=== PATIENT | female | born 1940 | race Caucasian/White ===

== ENCOUNTER 2021-10-21 12:52 | Emergency (ER) | payer MEDICARE ==
[~2021-10-21] VITALS: Ht 167.6 cm; Wt 76.4 kg
[2021-10-21] MEDS ORDERED: IV NORMAL SALINE 1,000ML 1,000 ML IV ONE ×2 (14:45→19:45)
[2021-10-21] MEDS ORDERED: IOHEXOL 300 MG/ML 75 ML VIAL. IV ONE (14:45)
[2021-10-21] MEDS ORDERED: CONTRAST GIVEN. MC PRN (14:45)
[2021-10-21] MEDS ORDERED: diphenhydrAMINE 50 MG/ML VIAL IVP ONE (15:00)
[2021-10-21 15:23] LABS: BASO % 0 % (0-3); EOS # 0.1 x10^3/uL (0.0-0.7); EOS % 0 % (0-3); HEMATOCRIT 40.5 % (36.0-47.0); HEMOGLOBIN 13.3 g/dL (12.0-15.5); LYMPH # 1.3 x10^3/uL (1.0-4.8); LYMPH % 11 % (24-48); MEAN CORPUSCULAR HEMOGLOBIN 28 pg (25-35); MEAN CORPUSCULAR HGB CONC 33 g/dL (31-37); MEAN CORPUSCULAR VOLUME 84 fL (79-100); MONO # 1.2 x10^3/uL (0.0-1.1); MONO % 10 % (0-9); NEUT # 9.1 x10^3uL (1.8-7.7); NEUT % 78 % (31-73); PLATELET COUNT 505 x10^3/uL (140-400); RED CELL DISTRIBUTION WIDTH 13.6 % (11.5-14.5); WHITE BLOOD COUNT 11.6 x10^3/uL (4.0-11.0)
[2021-10-21 15:34] LABS: CALCIUM 9.5 mg/dL (8.5-10.1); CREATININE 0.9 mg/dL (0.6-1.0); GFR 60.4; POTASSIUM 4.1 mmol/L (3.5-5.1)
[2021-10-21 15:39] LABS: ALBUMIN 2.7 g/dL (3.4-5.0); ALBUMIN/GLOBULIN RATIO 0.6 (1.0-1.7); MAGNESIUM 2.1 mg/dL (1.8-2.4); TOTAL BILIRUBIN 0.4 mg/dL (0.2-1.0); TOTAL PROTEIN 7.1 g/dL (6.4-8.2)
--- NOTE | 2021-10-21 16:23 | PHYS DOC ---
Past History Past Surgical History: No Surgical History (DARREN LIMON) Alcohol Use: None (DARREN LIMON) General Adult EDM: Chief Complaint: ABDOMINAL PAIN HPI: HPI: Patient is a 80 year old female who presents with 13-day history of constipation. Patient states that she has been unable to pass a bowel movement for approximately 13 days. She states she has tried taking MiraLAX and other laxatives without success. Patient reports associated malaise. Patient denies nausea, vomiting, diarrhea, fever, chills, dysuria, hematuria. (DARREN LIMON) Review of Systems: Review of Systems: Constitutional: See HPI Eyes: Denies change in visual acuity, visual field deficits or discharge HENT: Denies ear pain, nasal congestion or sore throat Respiratory: Denies cough or shortness of breath Cardiovascular: Denies chest pain, palpitations or edema GI: See HPI : See HPI Musculoskeletal: Denies back pain or joint pain Integument: Denies rash or other skin lesion Neurologic: Denies headache, focal weakness or sensory changes (DARREN LIMON) Current Medications: Current Meds: Current Medications Medications (Trade) Dose Ordered Sig/Lane Start Time Stop Time Status Last Admin Dose Admin Diphenhydramine HCl (Benadryl) 25 mg 1X ONCE 10/21/21 15:00 10/21/21 15:05 DC 10/21/21 15:13 25 MG Info (Do NOT chart on this entry -- for MONITORING) 1 each PRN DAILY PRN 10/21/21 14:45 10/23/21 14:44 Iohexol (Omnipaque 300 Mg/ml) 75 ml 1X ONCE 10/21/21 14:45 10/21/21 14:46 DC 10/21/21 15:49 75 ML Sodium Chloride 1,000 ml @ 1,000 mls/hr 1X ONCE 10/21/21 14:45 10/21/21 15:44 DC 10/21/21 15:07 1,000 MLS/HR (DARREN LIMON) Allergies: Allergies: Allergies Coded Allergies Type Severity Reaction Last Updated Verified acetaminophen Allergy Unknown 10/21/21 Yes hydrocodone Allergy Unknown 10/21/21 Yes tramadol Allergy Unknown 10/21/21 Yes (DARREN LIMON) Physical Exam: PE: Constitutional: Well developed, well nourished, no acute distress, non-toxic appearance. HENT: Normocephalic, atraumatic, bilateral external ears normal, nose normal. Eyes: EOMI, conjunctiva normal, no discharge. Neck: Normal range of motion, no stridor. Abdomen: Protuberant abdomen with distention, bowel sounds hypoactive, firm, no tenderness, no masses, no pulsatile masses. [] Skin: Warm, dry, no erythema, no rash. Extremities: No tenderness, no cyanosis, no clubbing, ROM intact, no edema. Neurologic: Alert and oriented x4, no focal deficits noted. (DARREN LIMON) Current Patient Data: Labs: Laboratory Tests Test 10/21/21 15:05 White Blood Count 11.6 x10^3/uL (4.0-11.0) H Red Blood Count 4.80 x10^6/uL (3.50-5.40) Hemoglobin 13.3 g/dL (12.0-15.5) Hematocrit 40.5 % (36.0-47.0) Mean Corpuscular Volume 84 fL (79-100) Mean Corpuscular Hemoglobin 28 pg (25-35) Mean Corpuscular Hemoglobin Concent 33 g/dL (31-37) Red Cell Distribution Width 13.6 % (11.5-14.5) Platelet Count 505 x10^3/uL (140-400) H Neutrophils (%) (Auto) 78 % (31-73) H Lymphocytes (%) (Auto) 11 % (24-48) L Monocytes (%) (Auto) 10 % (0-9) H Eosinophils (%) (Auto) 0 % (0-3) Basophils (%) (Auto) 0 % (0-3) Neutrophils # (Auto) 9.1 x10^3uL (1.8-7.7) H Lymphocytes # (Auto) 1.3 x10^3/uL (1.0-4.8) Monocytes # (Auto) 1.2 x10^3/uL (0.0-1.1) H Eosinophils # (Auto) 0.1 x10^3/uL (0.0-0.7) Basophils # (Auto) 0.0 x10^3/uL (0.0-0.2) Sodium Level 135 mmol/L (136-145) L Potassium Level 4.1 mmol/L (3.5-5.1) Chloride Level 99 mmol/L (98-107) Carbon Dioxide Level 26 mmol/L (21-32) Anion Gap 10 (6-14) Blood Urea Nitrogen 8 mg/dL (7-20) Creatinine 0.9 mg/dL (0.6-1.0) Estimated GFR (Cockcroft-Gault) 60.4 BUN/Creatinine Ratio 9 (6-20) Glucose Level 116 mg/dL (70-99) H Calcium Level 9.5 mg/dL (8.5-10.1) Magnesium Level 2.1 mg/dL (1.8-2.4) Total Bilirubin 0.4 mg/dL (0.2-1.0) Aspartate Amino Transferase (AST) 27 U/L (15-37) Alanine Aminotransferase (ALT) 29 U/L (14-59) Alkaline Phosphatase 209 U/L (46-116) H Total Protein 7.1 g/dL (6.4-8.2) Albumin 2.7 g/dL (3.4-5.0) L Albumin/Globulin Ratio 0.6 (1.0-1.7) L Lipase 59 U/L (73-393) L Vital Signs: Vital Signs Date Time Temp Pulse Resp B/P (MAP) Pulse Ox O2 Delivery O2 Flow Rate FiO2 10/21/21 18:41 100 20 119/74 (89) 94 Room Air 10/21/21 17:09 98 20 114/68 (83) 94 Room Air 10/21/21 15:37 94 20 110/72 (85) 94 Room Air 10/21/21 15:08 89 20 127/79 (95) 95 Room Air 10/21/21 14:35 91 20 137/94 (108) 96 Room Air 10/21/21 13:31 98.3 99 20 140/88 (105) 95 Room Air 10/21/21 13:20 72 20 144/52 (82) 98 Room Air (DARREN LIMON) Radiology/Procedures: Radiology/Procedures: PROCEDURE: CT ABD PELV W/ IV CONTRST ONLY Exam: CT of abdomen and pelvis with contrast INDICATION: Abdominal pain, constipation for 13 days TECHNIQUE: Sequential axial images through the abdomen and pelvis obtained following the administration of 75 mL of Isovue-370 IV contrast. Sagittal and coronal reformatted images were reconstructed from the axial data and reviewed. Exposure: One or more of the following in the visualized dose reduction techniques were utilized for this examination: 1. Automated exposure control 2. Adjustment of the MA and/or KV according to patient size 3. Use of iterative of reconstructive technique Comparisons: None FINDINGS: Heart size is normal. No pericardial effusion. Small hiatal hernia. Small bilateral pleural effusions with adjacent atelectasis. Liver, spleen, pancreas, and adrenals are unremarkable. Gallbladder is partially distended and not well evaluated. No perinephric inflammation or hydronephrosis. No renal or ureteral calculi are identified. Bladder is partially distended and not well evaluated. Uterus is enlarged with a heterogenous masslike area centrally within the uterus. No abnormal adnexal mass. Mild wall thickening at the splenic flexure of the colon. Remainder large and small bowel are unremarkable. There is a large amount of intra-abdominal ascites nodularity and reticulation noted throughout the omentum and mesenteric fat. No free air. Abdominal aorta has normal course and caliber. Abdominal vasculature is patent. No enlarged intra-abdominal lymph nodes are identified. Mild prominent right inguinal lymph node noted measuring up to 1.2 cm in long axis. No suspicious osseous lesions or acute fractures. IMPRESSION: 1. Large amount of intra-abdominal ascites with peritoneal and omental nodularity concerning for peritoneal carcinomatosis. 2. There is mild wall thickening at the splenic flexure of the colon. Correlate with colonoscopy. 3. Heterogenous enhancing mass centrally within the uterus measuring approximately 6.0 x 4.2 cm. This may be endometrial in nature. Further evaluation with ultrasound is warranted. 4. Prominent right inguinal lymph node as described above. 5. Small hiatal hernia. 6. Small bilateral pleural effusions with adjacent atelectasis. Electronically signed by: Norma Davis MD (10/21/2021 9:41 PM) [facility] (DARREN LIMON) Heart Score: C/O Chest Pain: No (DARREN LIMON) Course & Med Decision Making: Course & Med Decision Making Pertinent Labs and Imaging studies reviewed. (See chart for details) Patient is a 80-year-old female who presents with 2-week history of constipatio n, abdominal distention. She states she has an appointment with her primary care doctor tomorrow, but "could not make it." Work-up today will include labs, CT abdomen pelvis with IV contrast, urinalysis. CT abdomen pelvis concerning for a mass. It is unclear whether the mass originates in the colon and extends to the uterus, or begins to the uterus and extends to the colon. She also has ascites throughout her abdomen. No obstruction at this time. Dr. Genao (hospitalist) will admit patient to [facility] for higher level of care. Consulted with Dr. Hall (heme/onc) and Dr. Lee (general surgery) regarding patient case. Patient reluctantly agrees to transfer after consulting with and daughter in law. During her stay in the [place] emergency department while awaiting transfer to [facility], she did have some regurgitation of mucus as well as requesting Tums. She was given MiraLAX and Dulcolax here in the department in effort to stimulate a bowel movement, however it was unsuccessful while she was here. Patient continues to pass gas occasionally. Patient was hemodynamically stable and comfortable upon transfer to [facility]. (DARREN LIMON) Course & Med Decision Making Did not see or evaluate patient. Agree with PAs work-up and disposition per note (IMANI REYNAGA MD) Dragon Disclaimer: Dragon Disclaimer: This electronic medical record was generated, in whole or in part, using a voice recognition dictation system. (DARREN LIMON) Departure Departure: Impression: Primary Impression: Mass of abdomen Qualified Codes: R19.09 - Other intra-abdominal and pelvic swelling, mass and lump Additional Impressions: Ascites Qualified Codes: R18.8 - Other ascites Leukocytosis Qualified Codes: D72.829 - Elevated white blood cell count, unspecified Constipation Qualified Codes: K59.00 - Constipation, unspecified Disposition: 02 SHORT TERM HOSPITAL Condition: GUARDED Referrals: KARY THOMPSON MD (PCP) DARREN LIMON Oct 21, 2021 16:23 IMANI REYNAGA MD Oct 21, 2021 22:11
[2021-10-21] MEDS ORDERED: BISACODYL TAB 5 MG TABLET.DR. PO ONE (17:30)
[2021-10-21] MEDS ORDERED: POLYETHYLENE GLYCOL 3350 17 GM PACKET. PO ONE (17:30)
[2021-10-21] MEDS ORDERED: IV NORMAL SALINE 50ML 50 ML ONE (20:28)
[2021-10-21] MEDS ORDERED: cefTRIAXone SODIUM 1 GM VIAL ONE (20:28)
[2021-10-21 21:08] VITALS: BP 149/103
[2021-10-21] MEDS ORDERED: PANTOPRAZOLE IV 40 MG VIAL. ONE (21:10)
[2021-10-21] MEDS ORDERED: CALCIUM CARBONATE 500 MG TAB.CHEW PO PRN (21:15)
[2021-10-21] MEDS ORDERED: PANTOPRAZOLE IV 40 MG VIAL. IVP ONE (21:15)
--- NOTE | 2021-10-21 21:44 | RAD ---
Exam: CT of abdomen and pelvis with contrast INDICATION: Abdominal pain, constipation for 13 days TECHNIQUE: Sequential axial images through the abdomen and pelvis obtained following the administrati on of 75 mL of Isovue-370 IV contrast. Sagittal and coronal reformatted images were reconstructed fro m the axial data and reviewed. Exposure: One or more of the following in the visualized dose reduction techniques were utilized for this examination: 1. Automated exposure control 2. Adjustment of the MA and/or KV according to patient size 3. Use of iterative of reconstructive technique Comparisons: None FINDINGS: Heart size is normal. No pericardial effusion. Small hiatal hernia. Small bilateral pleural effusions with adjacent atelectasis. Liver, spleen, pancreas, and adrenals are unremarkable. Gallbladder is partially distended and not we ll evaluated. No perinephric inflammation or hydronephrosis. No renal or ureteral calculi are identified. Bladder is partially distended and not well evaluated. Uterus is enlarged with a heterogenous masslik e area centrally within the uterus. No abnormal adnexal mass. Mild wall thickening at the splenic flexure of the colon. Remainder large and small bowel are unremar kable. There is a large amount of intra-abdominal ascites nodularity and reticulation noted throughou t the omentum and mesenteric fat. No free air. Abdominal aorta has normal course and caliber. Abdominal vasculature is patent. No enlarged intra-abdominal lymph nodes are identified. Mild prominent right inguinal lymph node note d measuring up to 1.2 cm in long axis. No suspicious osseous lesions or acute fractures. IMPRESSION: 1. Large amount of intra-abdominal ascites with peritoneal and omental nodularity concerning for per itoneal carcinomatosis. 2. There is mild wall thickening at the splenic flexure of the colon. Correlate with colonoscopy. 3. Heterogenous enhancing mass centrally within the uterus measuring approximately 6.0 x 4.2 cm. Thi s may be endometrial in nature. Further evaluation with ultrasound is warranted. 4. Prominent right inguinal lymph node as described above. 5. Small hiatal hernia. 6. Small bilateral pleural effusions with adjacent atelectasis. Electronically signed by: Norma Davis MD (10/21/2021 9:41 PM) [facility]
== END 2021-10-21 21:54 | disposition short-term general hospital (02) ==
LOC: ER 12:52
DX: R19.09 Other intra-abdominal and pelvic swelling, mass and lump (principal); R18.8 Other ascites; D72.829 Elevated white blood cell count, unspecified; K59.00 Constipation, unspecified; Z88.5 Allergy status to narcotic agent; Z88.8 Allergy status to other drugs, medicaments and biological substances
CPT/HCPCS: 36415; 74177; 80053; 83690; 83735; 85025; 96361; 96365; 96375; 99285; C9113; J0696; J1200; J7030; Q9967

== ENCOUNTER 2021-11-21 12:12 | Emergency (ER) | payer MEDICARE ==
[~2021-11-21] VITALS: Ht 167.6 cm; Wt 68.0 kg
[2021-11-21] MEDS ORDERED: IV NORMAL SALINE 500ML 500 ML IV ONE (12:45)
[2021-11-21] MEDS ORDERED: LIDO:MAALOX 1:1 20 ML SINGLE DOSE. PO ONE ×2 (12:45→15:15)
[2021-11-21] MEDS ORDERED: ONDANSETRON PF 4 MG/2 ML VIAL. ONE (12:55)
[2021-11-21] MEDS ORDERED: ONDANSETRON PF 4 MG/2 ML VIAL. IVP ONE ×2 (13:00→15:15)
[2021-11-21 13:32] LABS: BASO # 0.1 x10^3/uL (0.0-0.2); BASO % 1 % (0-3); EOS # 0.1 x10^3/uL (0.0-0.7); EOS % 1 % (0-3); HEMATOCRIT 36.9 % (36.0-47.0); HEMOGLOBIN 11.7 g/dL (12.0-15.5); LYMPH # 0.8 x10^3/uL (1.0-4.8); LYMPH % 7 % (24-48); MEAN CORPUSCULAR HEMOGLOBIN 26 pg (25-35); MEAN CORPUSCULAR HGB CONC 32 g/dL (31-37); MEAN CORPUSCULAR VOLUME 82 fL (79-100); MONO # 0.1 x10^3/uL (0.0-1.1); MONO % 1 % (0-9); NEUT # 10.6 x10^3uL (1.8-7.7); NEUT % 91 % (31-73); PLATELET COUNT 244 x10^3/uL (140-400); RED BLOOD COUNT 4.51 x10^6/uL (3.50-5.40); RED CELL DISTRIBUTION WIDTH 14.6 % (11.5-14.5); WHITE BLOOD COUNT 11.6 x10^3/uL (4.0-11.0)
[2021-11-21 14:17] LABS: CALCIUM 7.9 mg/dL (8.5-10.1); CREATININE 0.7 mg/dL (0.6-1.0); GFR 80.7
[2021-11-21 14:23] LABS: ALBUMIN 1.4 g/dL (3.4-5.0); ALBUMIN/GLOBULIN RATIO 0.4 (1.0-1.7); MAGNESIUM 1.7 mg/dL (1.8-2.4); TOTAL BILIRUBIN 0.5 mg/dL (0.2-1.0); TOTAL PROTEIN 5.1 g/dL (6.4-8.2)
--- NOTE | 2021-11-21 14:49 | EKG ---
[address] [address] Test Date: 2021-11-21 Test Time: 13:29:11 Pat Name: JAZ SOLIS Department: Room: Gender: F Tube Puller: NICK : [phone] Requested By: UMA HERBERT Order Number: [id number] Reading MD: Lowell Ashford Measurements Intervals [place] Rate: 113 P: 32 GA: 116 QRS: -30 QRSD: 120 T: 145 QT: 356 QTc: 488 Interpretive Statements SINUS TACHYCARDIA ATRIAL PREMATURE COMPLEX(ES) NON SPECIFIC ST-T WAVE CHANGES LVH WITH REPOLARIZATION ABNORMALITY Electronically Signed On 11-22-2021 17:41:41 CLIENT DELIVERY MANAGER by Lowell Ashford
--- NOTE | 2021-11-21 15:04 | PHYS DOC ---
Past History Additional Past Medical Histor: stomach cancer Past Surgical History: No Surgical History Alcohol Use: None General Adult EDM: Chief Complaint: MULTIPLE COMPLAINTS HPI: HPI: Patient is a 80-year-old female presents with pain in her mouth and requesting fluids. Patient was diagnosed with cancer 1 month ago and has been receiving chemo and having fluid drained from her abdomen. Patient states that she supposed be getting some Magic mouthwash sometime today but unable to eat because her mouth is on fire. Patient was concerned about getting dehydrated. Denying abdominal pain denying shortness of breath or chest pain. "I just want fluids and something for my mouth and to go home". History of abdominal mass Review of Systems: Review of Systems: ROS At least 10 ROS systems have been reviewed and are negative except as documented in the HPI. General: Negative except as outlined in HPI above. Skin: Negative except as outlined in HPI above. HEENT: Negative except as outlined in HPI above. Neck: Negative except as outlined in HPI above. Respiratory: Negative except as outlined in HPI above.. Cardiovascular: Negative except as outlined in HPI above. Abdomen: Negative except as outlined in HPI above. : Negative except as outlined in HPI above. Back/MSK: Negative except as outlined in HPI above. Neuro: Negative except as outlined in HPI above. Psych: Negative except as outlined in HPI above. Current Medications: Current Meds: Current Medications Medications (Trade) Dose Ordered Sig/Lane Start Time Stop Time Status Last Admin Dose Admin Fentanyl Citrate (Fentanyl 2ml Vial) 50 mcg 1X ONCE 11/21/21 13:30 11/21/21 13:31 DC 11/21/21 13:55 50 MCG Multi-Ingredient Mouthwash/Gargle (Gi Cocktail) 20 ml 1X ONCE 11/21/21 12:45 11/21/21 12:50 DC 11/21/21 13:13 20 ML Ondansetron HCl (Zofran) 4 mg 1X ONCE 11/21/21 13:00 11/21/21 13:05 DC 11/21/21 13:15 4 MG Sodium Chloride 500 ml @ 0 mls/hr 1X ONCE 11/21/21 12:45 11/21/21 12:50 DC 11/21/21 12:45 500 MLS/HR Allergies: Allergies: Allergies Coded Allergies Type Severity Reaction Last Updated Verified acetaminophen Allergy Unknown 10/21/21 Yes hydrocodone Allergy Unknown 10/21/21 Yes tramadol Allergy Unknown 10/21/21 Yes Physical Exam: PE: Constitutional: Well developed, well nourished, no acute distress, non-toxic appearance. [] HENT: Normocephalic, atraumatic, bilateral external ears normal, oropharynx m oist, no oral exudates, nose normal. [] Eyes: PERRLA, EOMI, conjunctiva normal, no discharge. [] Neck: Normal range of motion, no tenderness, supple, no stridor. [] Cardiovascular:Heart rate regular rhythm, no murmur [] Lungs & Thorax: Bilateral breath sounds clear to auscultation [] Abdomen: Bowel sounds normal, distended, tender Skin: Warm, dry, no erythema, no rash. [] Back: No tenderness, no CVA tenderness. [] Extremities: No tenderness, no cyanosis, no clubbing, ROM intact, no edema. [] Neurologic: Alert and oriented X 3, normal motor function, normal sensory fu nction, no focal deficits noted. [] Psychologic: Affect normal, judgement normal, mood normal. [] Current Patient Data: Labs: Laboratory Tests Test 11/21/21 13:20 11/21/21 13:51 White Blood Count 11.6 x10^3/uL (4.0-11.0) H Red Blood Count 4.51 x10^6/uL (3.50-5.40) Hemoglobin 11.7 g/dL (12.0-15.5) L Hematocrit 36.9 % (36.0-47.0) Mean Corpuscular Volume 82 fL (79-100) Mean Corpuscular Hemoglobin 26 pg (25-35) Mean Corpuscular Hemoglobin Concent 32 g/dL (31-37) Red Cell Distribution Width 14.6 % (11.5-14.5) H Platelet Count 244 x10^3/uL (140-400) Neutrophils (%) (Auto) 91 % (31-73) H Lymphocytes (%) (Auto) 7 % (24-48) L Monocytes (%) (Auto) 1 % (0-9) Eosinophils (%) (Auto) 1 % (0-3) Basophils (%) (Auto) 1 % (0-3) Neutrophils # (Auto) 10.6 x10^3uL (1.8-7.7) H Lymphocytes # (Auto) 0.8 x10^3/uL (1.0-4.8) L Monocytes # (Auto) 0.1 x10^3/uL (0.0-1.1) Eosinophils # (Auto) 0.1 x10^3/uL (0.0-0.7) Basophils # (Auto) 0.1 x10^3/uL (0.0-0.2) Sodium Level 136 mmol/L (136-145) Potassium Level 4.0 mmol/L (3.5-5.1) Chloride Level 103 mmol/L (98-107) Carbon Dioxide Level 24 mmol/L (21-32) Anion Gap 9 (6-14) Blood Urea Nitrogen 21 mg/dL (7-20) H Creatinine 0.7 mg/dL (0.6-1.0) Estimated GFR (Cockcroft-Gault) 80.7 BUN/Creatinine Ratio 30 (6-20) H Glucose Level 113 mg/dL (70-99) H Calcium Level 7.9 mg/dL (8.5-10.1) L Magnesium Level 1.7 mg/dL (1.8-2.4) L Total Bilirubin 0.5 mg/dL (0.2-1.0) Aspartate Amino Transferase (AST) 39 U/L (15-37) H Alanine Aminotransferase (ALT) 35 U/L (14-59) Alkaline Phosphatase 150 U/L (46-116) H Total Protein 5.1 g/dL (6.4-8.2) L Albumin 1.4 g/dL (3.4-5.0) L Albumin/Globulin Ratio 0.4 (1.0-1.7) L Lipase 53 U/L (73-393) L Vital Signs: Vital Signs Date Time Temp Pulse Resp B/P (MAP) Pulse Ox O2 Delivery O2 Flow Rate FiO2 11/21/21 13:55 18 Room Air 11/21/21 12:25 98.1 106 110/94 (99) 97 EKG: EKG: sinus tachycardia, HR 113. NO STEMI.[] Radiology/Procedures: Radiology/Procedures: [] Heart Score: C/O Chest Pain: No Risk Factors: Risk Factors: DM, Current or recent (<one month) smoker, HTN, HLP, family history of CAD, obesity. Risk Scores: Score 0 - 3: 2.5% MACE over next 6 weeks - Discharge Home Score 4 - 6: 20.3% MACE over next 6 weeks - Admit for Clinical Observation Score 7 - 10: 72.7% MACE over next 6 weeks - Early Invasive Strategies Course & Med Decision Making: Course & Med Decision Making Pertinent Labs and Imaging studies reviewed. (See chart for details) [] 80-year-old male presents with burning mouth pain. Patient was diagnosed with stomach cancer 1 month ago. Patient was receiving chemo along with having fluid drained. Work-up in ER consisted of labs, 500 NS bolus, EKG. Patient given GI cocktail to help with mouth pain. Patient also given fentanyl and Zofran. All labs unremarkable. Patient states that her symptoms and pain have improved. Patient is requesting to be discharged to home. Patient has an appointment on Tuesday with Dr. Dumont and will address any other concerns she has at that time. Family would prefer patient to be admitted for further management. Patient is adamant about being discharged to home and does not want to be admitted to the hospital. After getting patient's paperwork ready for discharge. Patient started complaining of pain. Patient requesting more medication for her burning mouth and all over her discomfort. Patient also reporting nausea. Patient given GI cocktail, Zofran, fentanyl. Patient informing that she would prefer to be admitted to [facility] for further management of symptoms and to discuss home health options. Spoke with Dr. Hernandez at [facility], Dr. Hernandez is willing to accep t patient for pain control. Advised patient she would be transported to [facility]. Patient agrees with admission plan. Toshia Disclaimer: Toshia Disclaimer: This electronic medical record was generated, in whole or in part, using a voice recognition dictation system. Departure Departure: Impression: Primary Impression: Inadequate pain control Additional Impression: Cancer of intra-abdominal Disposition: HOME / SELF CARE / HOMELESS Condition: STABLE Referrals: KARY THOMPSON MD (PCP) UMA HERBERT APRN Nov 21, 2021 15:03
[2021-11-21] MEDS ORDERED: PROCHLORPERAZINE 10 MG/2 ML VIAL. ONE (18:08)
[2021-11-21] MEDS ORDERED: PROCHLORPERAZINE 10 MG/2 ML VIAL. IV ONE (18:15)
[2021-11-21] MEDS: diphenhydrAMINE 50 MG/ML VIAL IVP ONE ×2 (18:45→20:40)
[2021-11-21 22:33] VITALS: BP 104/68
== END 2021-11-22 01:02 | disposition home or self-care (01) ==
LOC: ER 12:12
DX: U07.1 COVID-19 (principal); C76.2 Malignant neoplasm of abdomen; K13.79 Other lesions of oral mucosa; Z88.5 Allergy status to narcotic agent; Z88.8 Allergy status to other drugs, medicaments and biological substances
CPT/HCPCS: 36415; 80053; 83690; 83735; 85025; 87426; 93005; 96374; 96375; 96376; 99285; C9803; J0780; J1200; J2060; J2405; J3010; J7040; U0003; 99284